=== PATIENT | male | born 1950 | race Caucasian/White ===

== ENCOUNTER 2019-05-13 14:41 | Inpatient (IN) | payer MEDICARE, OTHER, MEDICAID ==
[~2019-05-13] VITALS: Ht 172.7 cm; Wt 86.0 kg
[~2019-05-13 14:41] MED LIST: ACCUPRIL40 MG PO; ACETAMINOPHEN650 M5 PO; ALBUTEROL2.5 MG/3 M IH; ALDACTONE25 MG PO; ASPIR 8181 MG PO; CARDIZEM CD360 MG PO; CARVEDILOL6.25 MG PO; CITALOPRAM HBR40 MG PO; COUMADIN 2 MG TA2 M1 PO; DILTIAZEM 24HR240 M2 PO; DOXYCYCLINE 10100 MG PO; DUONEB 2.5-0.5 M3 ML INH; FLEXERIL PO; FLORASTOR250 MG PO; GLUCOPHAGE1000 MG PO; GLUCOPHAGE500 MG; HYDRALAZINE HC100 MG PO; HYDROCODON-ACE1 EAC7 PO; HYDROCODONE-AP1 EAC6 PO; HYDROCODONE-APA1 TA1 PO; LASIX 40 MG TAB40 M1 PO; LIPITOR; LIPITOR 40 MG T40 M1 PO; MOBIC15 MG PO; NEXIUM 40 MG CA40 M1; NEXIUM 40 MG CA40 M1 PO; NICOTINE TRANSD21 M1 TD; OMEPRAZOLE40 MG PO; OSELB75 PO; POTASSIUM20 PO; PRAVACHOL40 MG PO; PREDNISONE 10 M10 MG PO; PREDNISONE 20 M20 M1 PO; PRINIVIL40 MG PO; PROAIR HFA8.5 GM IH; PROTONIX40 M1 PO; SINGULAIR 10 MG10 M1 PO; TAZTIA XT360 M1 PO; TOPROL; TOPROL XL100 MG PO; ULTRACET TABLE1 EACH PO; VENTOLIN HFA 1818 GM INH; [UNRECOGNIZED DRUG - OTHER]
[2019-05-13 14:47] VITALS: BP 118/71
[2019-05-13] MEDS ORDERED: BUDESONIDE EC3 MG PO (14:55)
[2019-05-13] MEDS ORDERED: BLOOD THINNER (14:56)
[2019-05-13 15:14] LABS: HEMATOCRIT 33.5 % (42.0-52.0); HEMOGLOBIN 10.9 gm/dL (14.0-18.0); MCH 28.7 pg (26.0-34.0); MCHC 32.6 g/dL (28.0-37.0); MCV 88.1 fL (80.0-100.0); MPV 7.1 fl. (7.2-11.1); NUCLEATED RBCS 0 /100WBC; PLATELET COUNT* 532 thou/uL (150-400); RDW-CV 15.5 % (10.5-14.5); WBC 13.4 thou/uL (4.0-11.0)
[2019-05-13 15:18] LABS: CREATININE 1.8 mg/dL (0.6-1.3); POTASSIUM 4.9 mmol/L (3.5-5.1)
[2019-05-13 15:19] LABS: APTT 39.8 Seconds (25.0-31.3); INR 1.4; PROTIME 14.4 Seconds (9.20-11.50)
[2019-05-13 15:29] LABS: ALBUMIN 2.9 g/dL (3.4-5.0); TOTAL BILIRUBIN 0.3 mg/dL (<0.1-1.0); TOTAL PROTEIN 6.7 g/dL (6.4-8.2)
[2019-05-13 15:37] LABS: INFLUENZA A ANTIGEN Negative (Negative); INFLUENZA B ANTIGEN Negative (Negative)
[2019-05-13 16:06] LABS: ABSOLUTE LYMPHOCYTES 0.7 thou/uL (0.8-5.3); ABSOLUTE MONOCYTES 0.5 thou/uL (0.0-1.2); ABSOLUTE NEUTROPHILS 12.2 thou/uL (1.6-8.1)
[2019-05-13 16:07] LABS: ANISOCYTOSIS Occasional; PLATELET ESTIMATE INCREASED
[2019-05-13 17:42] VITALS: BP 115/70
[2019-05-13] MEDS ORDERED: ELIQUIS5 MG PO (17:50)
[2019-05-13 19:03] VITALS: BP 140/73
[2019-05-13 22:45] VITALS: BP 141/76
[2019-05-14 00:35] VITALS: BP 115/80
[2019-05-14 04:00] VITALS: BP 170/100
[2019-05-14 05:47] LABS: ABSOLUTE LYMPHOCYTES 0.6 thou/uL (0.8-5.3); ABSOLUTE NEUTROPHILS 7.4 thou/uL (1.6-8.1); BASOPHILS 0.2 %; HEMATOCRIT 32.6 % (42.0-52.0); HEMOGLOBIN 10.9 gm/dL (14.0-18.0); LYMPHOCYTES 7.6 %; MCH 29.7 pg (26.0-34.0); MCHC 33.3 g/dL (28.0-37.0); MCV 89.2 fL (80.0-100.0); MONOCYTES 0.5 %; NUCLEATED RBCS 0 /100WBC; POLYS 91.7 %; RBC 3.65 mil/uL (4.50-6.00); RDW-CV 15.3 % (10.5-14.5); WBC 8.1 thou/uL (4.0-11.0)
[2019-05-14 05:49] LABS: PLATELET COUNT* 431 thou/uL (150-400)
--- NOTE | 2019-05-14 06:07 | NUR ---
PT A&O, ON 3L O2 BY NC. NO C/O PAIN. PT USED URINAL TO VOID. PT TRANSFERED TO NEGATIVE PRESSURE ROOM, BREATHING TREATMENT GIVEN. HEART MONITOR IN PLACE. WILL CONTINUE TO MONITOR.
[2019-05-14 06:28] LABS: ANION GAP 12 mmol/L (7-16); BUN 31 mg/dL (7-18); CALCIUM 8.1 mg/dL (8.5-10.1); CHLORIDE 101 mmol/L (98-107); CO2 27 mmol/L (21-32); CREATININE 1.6 mg/dL (0.6-1.3); GLUCOSE 162 mg/dL (70-99); MAGNESIUM 1.1 mg/dL (1.8-2.4); NT-PRO BRAIN NAT PEPTIDE 6373 pg/mL (<300); POTASSIUM 5.5 mmol/L (3.5-5.1); SODIUM 140 mmol/L (136-145); TROPONIN-I LEVEL <0.06 ng/mL (<0.06)
[2019-05-14 07:50] VITALS: BP 158/86
--- NOTE | 2019-05-14 11:06 | EKG ---
[place] [address] ELECTROCARDIOGRAM REPORT Name: ZOË BARTON Room: [place] [address] ADM IN [facility].#: [id number] Admission: 05/13/19 Attend Phys: Jamel Gunter, Discharge: Date of : 46 Date of Service: 05/13/19 1500 Report #: [id number] THIS REPORT FOR: //name// [facility] ED Test Date: 2019-05-13 Test Time: 15:00:14 Pat Name: ZOË BARTON Department: Room: [facility] Gender: M Ctc Operator: TK : 1950 Requested By: Franklin Sandoval Order Number: [id number] MD: Dillan Burgos Measurements Intervals [place] Rate: 72 P: KS: QRS: -32 QRSD: 78 T: 35 QT: 404 QTc: 443 Interpretive Statements Afib/flut and V-paced complexes poor r wave progression No further rhythm analysis attempted due to paced rhythm Low voltage, extremity and precordial leads Compared to ECG 03/07/2016 09:46:51 paced beats noted Electronically Signed On 05-14-2019 11:05:03 CDT by Dillan Burgos [email or web address] <ELECTRONICALLY SIGNED> By: Dillan Burgos MD, FACC 05/14/19 1105 1500 1500 Dillan Burgos MD, FACC /EPI
[2019-05-14 11:21] VITALS: BP 114/62
--- NOTE | 2019-05-14 11:44 | CON ---
[address] [address] CONSULTATION Name: ZOË BARTON Room: [place] [address] ADM IN [facility].#: [id number] Admission: 05/13/19 Attend Phys: Jamel Gunter MD Discharge: Date of : 46 Report #: [id number] THIS REPORT FOR: //name// cc: JEOVANNY Coles family physician/PCP JEOVANNY Coles family physician/PCP ~ THIS REPORT FOR: //name// CC: Jamel Gunter [facility] physician/PCP Hayden Enciso DO DATE OF SERVICE: 05/14/2019 CARDIOLOGY CONSULTATION HISTORY OF PRESENT ILLNESS: The patient is a 68-year-old single white male who I was asked to see in the hospital today after he complained of being short of breath. The patient presented in 2005 with a syncopal spell. He was taken to [facility]. He apparently had a heart catheterization and was found to have minimal coronary artery disease. He was admitted to [facility] in 2012 with atrial fibrillation. Recommended anticoagulation with warfarin. Echocardiogram showed normal left ventricular function. He was placed on diltiazem. Previous stress test showed no significant CAD. Previous screening showed mild carotid stenosis. The patient had a syncopal spell. On event recorder, he had episodes of rapid atrial fibrillation as well as slow rates of atrial fibrillation consistent with tachybrady syndrome. He had a 6-second pause. I recommended a permanent pacemaker. This was performed at [facility] in 02/2016. I saw the patient in the office a week later. The patient was paced approximately 30% of the time. He has not been seen for the past 3 years. He apparently lives in [place]. The patient is not very active at this time. He apparently has not been taking medications at this time. He came to the Emergency Room yesterday complaining that his feet were swollen. He was short of breath. He has had a cough. Denied any chest pain, palpitations, syncope, or bleeding. PAST MEDICAL HISTORY: Otherwise significant for previous shoulder surgery. He has had previous toe amputation following an accident, but it was reattached. He has a history of tonsillectomy, carpal tunnel surgery, hypertension, diabetes, and hyperlipidemia. MEDICATIONS: His previous medications included metformin, quinapril, Pravachol, Celexa, omeprazole, and warfarin. He is not taking any medications at this time. ALLERGIES: HE HAS PREVIOUS INTOLERANCE TO SULFA DRUGS. FAMILY HISTORY: He has a [place] [address] CONSULTATION Name: ZOË BARTON Room: [address] IN [facility]#: [id number] Admission: 05/13/19 Attend Phys: Jamel Gunter MD Discharge: Date of : 46 Report #: [id number] SOCIAL HISTORY: He is single, currently lives in [place], [place]. He smokes half pack of cigarettes a day. No alcohol abuse. REVIEW OF SYSTEMS: No history of stroke, peptic ulcer disease, liver disease, kidney disease. He has chronic back pain. No chronic skin condition. No psychiatric illness. PHYSICAL EXAMINATION: GENERAL: Revealed an elderly male, lying in bed, appeared in mild respiratory distress. VITAL SIGNS: He had a blood pressure of 120/70, pulse is 80 and irregular. He was afebrile. HEENT: He is anicteric. Conjunctivae pink. Mucous membranes are moist. NECK: Neck veins do not appear distended. CHEST: Revealed decreased breath sounds, late expiratory phase is noted. CARDIOVASCULAR: Irregular rhythm. No significant murmur. ABDOMEN: Soft. EXTREMITIES: Had pitting edema up to mid tibial area. SKIN: Warm and dry. NEUROLOGIC: Nonfocal. RADIOLOGICAL DATA: His ECG shows atrial fibrillation with occasional paced beats. His workup, his last echocardiogram in 2016 showed ejection fraction of 40%, biatrial enlargement, moderate mitral regurgitation. His x-rays yesterday, he had a portable chest x-ray that showed mild infiltrate, normal heart size, no effusions. LABORATORY DATA: Sodium 140, potassium 5.5, BUN 31, and creatinine 1.6. He had a creatinine of 2.0 in 2017. Glucose 166. His liver function studies were normal. Troponin is 0.06. BNP is 6373. His white blood cell count 8.1 and hemoglobin 10.9, it was 10.1 in 2016. IMPRESSION AND RECOMMENDATIONS: 1. Pneumonia. 2. Atrial fibrillation. Recommend anticoagulation with warfarin. 3. Sick sinus syndrome. The patient has a pacemaker in place. 4. Hypertension. The patient quit taking all his medications. 5. Diabetes. 6. Tobacco abuse. <ELECTRONICALLY SIGNED> By: Dillan Burgos MD, [facility] 05/14/19 1144 0921 [id number] Burgos MD, FAC /nt
--- NOTE | 2019-05-14 12:43 | 2DMMODE ---
[place] [address] 2 D/M-MODE ECHOCARDIOGRAM Name: ZOË BARTON Room: [place] [address] ADM IN [place].#: [id number] Admission: 05/13/19 Attend Phys: Jamel Gunter, Discharge: Date of : 46 Date of Service: 05/14/19 1242 Report #: [id number] THIS REPORT FOR: cc: FAM - No family physician/PCP FAM - No family physician/PCP Dillan Burgos MD [facility] ~ APPROVED REPORT Study performed: 05/14/2019 09:49:01 EXAM: Comprehensive 2D, Doppler, and color-flow Echocardiogram Patient Location: In-Patient Room #: [facility] Status: routine BSA: 1.96 HR: 89 bpm BP: 158/86 mmHg Rhythm: Atrial Fibrillation Other Information Study Quality: Good Indications Atrial Fibrillation Respiratory failure 2D Dimensions IVSd: 10.59 (7-11mm) LVOT Diam: 20.77 (18-24mm) LVDd: 48.75 mm PWd: 8.65 (7-11mm) Ascending Ao: 31.73 (22-36mm) LVDs: 36.97 (25-40mm) Aortic Root: 30.74 mm Volumes Left Atrial Volume (Systole) LA ESV Index: 45.70 mL/m2 Aortic Valve AoV Peak Humberto.: 1.40 m/s AO Peak Gr.: 7.81 mmHg LVOT Max P.24 mmHg AO Mean Gr.: 4.63 mmHg LVOT Mean P.39 mmHg LVOT Max V: 0.90 m/s AO V2 VTI: 24.90 cm LVOT Mean V: 0.53 m/s LENCHO (VTI): 2.34 cm2 LVOT V1 VTI: 17.[address] [place] [address] 2 D/M-MODE ECHOCARDIOGRAM Name: ZOË BARTON Room: [address] IN [facility]#: [id number] Admission: 05/13/19 Attend Phys: Jamel Gunter, Discharge: Date of : 46 Date of Service: 05/14/19 1242 Report #: [id number] Pulmonary Valve PV Peak Humberto.: 0.95 m/s PV Peak Gr.: 3.57 mmHg Tricuspid Valve RAP Estimate: 10.00 mmHg TR Peak Gr.: 35.06 mmHg RVSP: 45.00 mmHg PA Pressure: 45.00 mmHg Left Ventricle The left ventricle is normal size. There is normal LV segmental wall motion. There is normal left ventricular wall thickness. Left ventricular systolic function is normal. The left ventricular ejection fraction is within the normal range. LVEF is 55-60%. This study is not technically sufficient to allow evaluation of the LV diastolic function due to atrial fibrillation. Right Ventricle The right ventricle is normal size. The right ventricular systolic function is normal. Pacemaker lead is present in the right ventricle. Atria Left atrium is moderately dilated. Right atrium is mildly dilated. Aortic Valve Mild aortic valve sclerosis. No aortic regurgitation is present. There is no aortic valvular stenosis. Mitral Valve The mitral valve is normal in structure. Mild mitral regurgitation. No evidence of mitral valve stenosis. Tricuspid Valve The tricuspid valve is normal in structure. Mild tricuspid regurgitation. estimated pa pressure 45 mm Hg Pulmonic Valve Pulmonic valve is not well visualized. There is no pulmonic valvular regurgitation. Great Vessels The aortic root is normal in size. IVC is dilated. Pericardium There [place] [address] 2 D/M-MODE ECHOCARDIOGRAM Name: ZOË BARTON Room: [address] IN .R.#: [id number] Admission: 05/13/19 Attend Phys: Jamel Gunter, Discharge: Date of : 46 Date of Service: 05/14/19 1242 Report #: [id number] <Conclusion> LVEF is 55-60%. Left atrium is moderately dilated. Mild aortic valve sclerosis. Mild mitral regurgitation. Mild tricuspid regurgitation. estimated pa pressure 45 mm Hg <ELECTRONICALLY SIGNED> By: Dillan Burgos MD, [facility] 05/14/19 1242 124 41 Dillan Burgos MD, [facility] /INF
[2019-05-14 17:35] VITALS: BP 119/60
--- NOTE | 2019-05-14 18:07 | NUR ---
PT A&OX4 VSS. PVCs NOTED ON MONITOR. COVID RESULTS PENDING. PT ON 3L O2 BY NASAL CANNULA. EDEMA NOTED TO BLE, PRESENT PRIOR TO THIS NURSE'S SHIFT. IV LASIX ADMINISTERED ORDERED. IV TO R HAND DC'D BY PT. NEW ACCESS PLACED TO RFA BY SILVIA CONTRERAS. PT IS ACCUCHECK. PT UP TO RECLINER DESIRED FOR MEALS. PT TO RESTROOM UNASSISTED. PT REMAINS AFEBRILE. PT INSTRUCTED TO USE CALL LIGHT NEEDED. CELL PHONE AND OPS ANALYST PLACED IN REACH WELL URINAL. PT SITTING IN RECLINER AT THIS TIME. WILL CONTINUE TO MONITOR.
[2019-05-14 20:33] VITALS: BP 142/96
[2019-05-15] VITALS: BP 134/80
[2019-05-15 05:00] VITALS: BP 155/95
[2019-05-15 05:22] LABS: ABSOLUTE LYMPHOCYTES 0.6 thou/uL (0.8-5.3); ABSOLUTE MONOCYTES 0.2 thou/uL (0.0-1.2); ABSOLUTE NEUTROPHILS 13.9 thou/uL (1.6-8.1); BASOPHILS 0.1 %; HEMATOCRIT 32.8 % (42.0-52.0); HEMOGLOBIN 10.8 gm/dL (14.0-18.0); MCH 28.6 pg (26.0-34.0); MCHC 32.9 g/dL (28.0-37.0); MONOCYTES 1.4 %; NUCLEATED RBCS 0 /100WBC; PLATELET COUNT* 491 thou/uL (150-400); POLYS 94.5 %; RBC 3.77 mil/uL (4.50-6.00); RDW-CV 15.2 % (10.5-14.5); WBC 14.7 thou/uL (4.0-11.0)
[2019-05-15 05:42] LABS: ALBUMIN 2.9 g/dL (3.4-5.0); CALCIUM 8.8 mg/dL (8.5-10.1); CREATININE 1.7 mg/dL (0.6-1.3); POTASSIUM 4.7 mmol/L (3.5-5.1); TOTAL BILIRUBIN 0.3 mg/dL (<0.1-1.0); TOTAL PROTEIN 6.5 g/dL (6.4-8.2)
--- NOTE | 2019-05-15 06:34 | NUR ---
ASSUMED PT CARE AT 1930. NURSING ASSESSMENT COMPLETED AT START OF SHIFT. PT VOICED NO CONCERNS. AFIB/V PACED ON FURNACE MAINTENANCE. HOURLY ROUNDING COMPLETED. CALL LIGHT WITHIN REACH.
[2019-05-15 09:00] VITALS: BP 148/85
--- NOTE | 2019-05-15 16:40 | NUR ---
PATIENT ALERT AND ORIENTED X 4. VITAL SIGNS STABLE ON 4L O2 NASAL CANULA. AFEBRILE. IV PATENT AND SALINE LOCKED. MEDS GIVEN PER APR. DENIES PAIN AND NAUSEA AT THIS TIME. PVC'S NOTED ON MONITOR. COVID-19 RESULTS PENDING. ENHANCED PRECAUTIONS MAINTAINED. HOURLY ROUNDS MAINTAINED THROUGHOUT THE SHIFT. CALL LIGHT WITHIN REACH. NURSING WILL CONTINUE TO MONITOR.
--- NOTE | 2019-05-15 16:57 | NUR ---
Pt is A&O. Resides at home with his S/O, Cris. Normally independent. Pt uses a walker or cane for mobility. Pt wears 4L of o2 through [employer]. Hx of [facility]. No hx of SNF. Goal is home at [place]. Covid pending.
[2019-05-15 17:42] VITALS: BP 143/91
[2019-05-15 19:35] VITALS: BP 164/99
[2019-05-15 21:40] LABS: BE 4.7 mmol/L (-2 to +3); PCO2 37.4 mmHg (35.0-45.0); PO2 91.6 mmHg (75.0-100.0); pH 7.494 (7.340-7.450)
[2019-05-16] VITALS (18 sets, daily range): BP systolic 50–213; BP diastolic 13–183
--- NOTE | 2019-05-16 03:35 | NUR ---
ASSUMED CARE OF PT AT 1900. PT IS ALERT X'S 3. NO COMPLAINTS OF PAIN. UP WITH STAND BY ASSIST. PT WORK OF BREATHING HAS INCREASED T/O THE NIGHT. PT WAS GIVEN 80MG OF LASIX FOR FLUID OVERLOAD. PT PLACED ON STRICT I AN O. ALSO 1.5 FLUID RESTRICTION. PT IS IN A FIB ON THE TELEMETRY. PT WAS PLACED ON CARDIZEM AT THE BEGINNING OF THE SHIFT FOR HEART RATE IN THE 160'S. PT IS NONCOMPLIANT WITH ANY IV FLUIDS. PT PULLED HIS IV OUT WHEN IT WAS HOOKED UP. PT IS A VERY DIFFICULT STICK. PT REPORTS BEING AN IV DRUG USER.
[2019-05-16 10:18] LABS: ABSOLUTE LYMPHOCYTES 0.4 thou/uL (0.8-5.3); ABSOLUTE MONOCYTES 1.2 thou/uL (0.0-1.2); ABSOLUTE NEUTROPHILS 20.4 thou/uL (1.6-8.1); BASOPHILS 0.1 %; HEMOGLOBIN 11.4 gm/dL (14.0-18.0); LYMPHOCYTES 1.7 %; MCH 28.2 pg (26.0-34.0); MCHC 31.6 g/dL (28.0-37.0); MCV 89.3 fL (80.0-100.0); MONOCYTES 5.5 %; MPV 7.4 fl. (7.2-11.1); NUCLEATED RBCS 0 /100WBC; PLATELET COUNT* 549 thou/uL (150-400); POLYS 92.7 %; RBC 4.03 mil/uL (4.50-6.00); RDW-CV 15.8 % (10.5-14.5)
[2019-05-16 10:39] LABS: ALBUMIN 3.2 g/dL (3.4-5.0); CALCIUM 8.7 mg/dL (8.5-10.1); CREATININE 2.6 mg/dL (0.6-1.3); POTASSIUM 5.2 mmol/L (3.5-5.1); TOTAL BILIRUBIN 0.6 mg/dL (<0.1-1.0); TOTAL PROTEIN 6.8 g/dL (6.4-8.2)
[2019-05-16 11:56] LABS: BE 6.5 mmol/L (-2 to +3); pH 7.302 (7.340-7.450)
[2019-05-16 11:57] LABS: PCO2 72.3 mmHg (35.0-45.0)
[2019-05-16 11:58] LABS: PO2 218.9 mmHg (75.0-100.0)
[2019-05-16 15:36] LABS: ABSOLUTE BASOPHILS 0.1 thou/uL (0.0-0.2); ABSOLUTE LYMPHOCYTES 0.3 thou/uL (0.8-5.3); ABSOLUTE MONOCYTES 1.1 thou/uL (0.0-1.2); ABSOLUTE NEUTROPHILS 14.4 thou/uL (1.6-8.1); BASOPHILS 0.6 %; HEMATOCRIT 28.8 % (42.0-52.0); LYMPHOCYTES 1.7 %; MCH 28.9 pg (26.0-34.0); MCHC 32.5 g/dL (28.0-37.0); MCV 88.9 fL (80.0-100.0); MONOCYTES 6.7 %; MPV 7.3 fl. (7.2-11.1); NUCLEATED RBCS 0 /100WBC; RBC 3.23 mil/uL (4.50-6.00); RDW-CV 15.5 % (10.5-14.5); WBC 15.9 thou/uL (4.0-11.0)
[2019-05-16 15:45] LABS: CALCIUM 7.6 mg/dL (8.5-10.1); CREATININE 2.5 mg/dL (0.6-1.3)
[2019-05-16 16:13] LABS: MAGNESIUM 1.5 mg/dL (1.8-2.4); PHOSPHORUS* 5.4 mg/dL (2.5-4.9)
[2019-05-16 16:45] LABS: HEMOGLOBIN 9.3 gm/dL (14.0-18.0); PLATELET COUNT* 334 thou/uL (150-400)
--- NOTE | 2019-05-16 16:45 | NUR ---
I ASSUMED CARE OF THE PATIENT AT 0700. HE IS ALERT AND ORIENTED X3 AND IS UP WITH STAND BY ASSIST. HOURLY ROUNDING IS COMPLETE AND PATIENT NEEDS ARE MET. PAIN IS DENIED. BED IS IN THE LOW LOCKED POSITION AND CALL LIGHT IS IN REACH. HE IS STRUGGLING TO BREATHE. RESPIRATIONS ARE LABORED IN THE 45-50 RANGE. A RAPID WAS CALLED AND NEW ORDERS WERE OBTAINED. PATIENT WAS MOVED TO THE ICU WITH PLANS OF POSSIBLE INTUBATION. FAMILY IS CONTACTED OF THE TRANSFER AND REPORT IS GIVEN TO RUSSELL IN THE ICU.
[2019-05-16 16:46] LABS: POTASSIUM 4.1 mmol/L (3.5-5.1)
[2019-05-16 16:46] LABS: BE 8.5 mmol/L (-2 to +3); pH 7.442 (7.340-7.450)
[2019-05-16 16:48] LABS: PCO2 50.5 mmHg (35.0-45.0); PO2 190.3 mmHg (75.0-100.0)
--- NOTE | 2019-05-16 19:49 | NUR ---
pt came down from [place] do to resp failure sob intubated sedated coded preformed cpr no iv access during code IO inserted into l knee until central line placed IO removed after code cardio consult do to elevated hr and afib family notified central trip lumen placed by dr bree powers pt girlfriend paperwork in chart
[2019-05-17] VITALS (86 sets, daily range): BP systolic 44–153; BP diastolic 15–94
--- NOTE | 2019-05-17 02:37 | NUR ---
ASSUMED CARE AT 1900H, ON VENT AT 50% AC MODE AND TOLERATED. ON PRECEDEX DRIP MAX DOSE AND VERSED AT 5MG/HR WITH EPISODE OF TACHYPNIA. ON DOPAMINE 7MIC/KG/MIN AND TITRATED. PT BP WAS FLACTUATING. PT WAS HYPERTENSIVE AFTER TURNING HIM TO SIDE THEN BECAME HYPOTENSIVE. DOPAMINE INCREASE GRADUALLY THEN PT HAD NO PULSE AND NO HEART BEAT UPON AUSCULTATION. CODE BLUE ON, CPR INITIATED AND GIVEN 2 EPINEPHRINE IV. PT REGAIN PULSE AND WITH PB. STARTED EPINEPHRINE DRIP AND LEVOPHEP DRIP. VERSED DRIP AND PRECEDEX DRIP HOLD BUT PT BECAME TACHYPNIC AFTER AND HOUR, SEDATION STARTED AGAIN. HEMODYNAMIC STABLE FOR NOW. KEEP ON MONITORING.
[2019-05-17 05:59] LABS: HEMATOCRIT 30.6 % (42.0-52.0); MCHC 32.8 g/dL (28.0-37.0); MCV 88.4 fL (80.0-100.0); RBC 3.46 mil/uL (4.50-6.00); WBC 17.6 thou/uL (4.0-11.0)
[2019-05-17 06:03] LABS: CALCIUM 7.4 mg/dL (8.5-10.1); CREATININE 2.7 mg/dL (0.6-1.3); MAGNESIUM 1.6 mg/dL (1.8-2.4); POTASSIUM 4.7 mmol/L (3.5-5.1)
--- NOTE | 2019-05-17 10:21 | NUR ---
3553 ASSUMED CARE OF PATIENT. PLEASE SEE DOCUMENTED ASSESSMENT. PT IS UNRESPONSIVE TO PAIN BUT HAS INTACT GAG. DR HERRERA HERE AND DISCUSSED STATUS OF PATIENT. HE WILL CALL SIGNIFICANT OTHER WHO IS DPOA.
--- NOTE | 2019-05-17 17:07 | NUR ---
MINIMAL PROGRESSION TOWARDS GOALS TODAY. PT HAS BEEN UNRESPONSIVE WITH MTN NOTIFIED. SEDATION AND PRESSORS TITRATED DOWN WITH EPI DRIP NOW OFF. FEBRILE WITH TYLENOL GIVEN WELL COOLING BATH. MULTIPLE CONVERSATIONS TODAY WITH BOTH THE SIGNIFICANT OTHER WHO IS DPOA FOR PATIENT AND THE SON WHO IS THE ALTERNATE DPOA. HOSPITALIST HAS CONVERSED WITH BOTH OF THEM. PATIENT REMAINS OUT OF RESTRAINTS.
[2019-05-18] VITALS: BP 93/52
[2019-05-18 00:25] VITALS: BP 80/56
[2019-05-18 00:35] VITALS: BP 77/49
[2019-05-18 00:40] VITALS: BP 70/39
[2019-05-18 00:56] VITALS: BP 41/22
--- NOTE | 2019-05-18 04:23 | NUR ---
ASSUMED CARE AT 1900H, ON VENT AC MODE AT 50% AND STILL ON PRECEDEX AND VERSED DRIP. WITH DOPAMINE AND LEVO DRIP AND TITRATED ACCORDING TO BP. TALKED TO PT'S DPOA AND SHE WANTED PT TO DNR, EXPLAIN TO HER WHAT DNR MEANS. SECOND NURSE CONFIRM HER DECISSION AND HOSPITALIST INFORMED WITH ORDER CARRIED OUT. ARROUND 2300, PT'S BP GRADULLY DECREASING AND PRESSORS TITRATED. PRESSORS MAX, WE ARE ABOUT TO START NEW PRESSORS BUT PT BP SUDDENLY DROPPED AND WE COULDN'T GET PULSE AND HEART BEAT. SEEN BY ER DOCTOR EVI, TIME OF EXPIRATION WAS 0100H. INFORM PRIMARY DPOA(QASIM), SON WAS AWARE AND UPSET ABOUT THE DECISSION OF QASIM REGARDING THE DNR. DOCTORS INFORMED. MTN AWARE AND ACCORDING TO THEM, PT WAS NOT A CANDIDATE FOR DONATION. WATER PLANT PUMP OPERATOR ALSO CALLED AND CASE ACCEPTED. HOUSE SUP ALSO INFORMED UPON . [place]TE[place]O CATH REMOVED, PUT PT IN A BODY BAG. FAMILY CAME INCLUDING SONS ABLE SAY GOODBYES AND ALL BELONGING RELEASE TO ZOË GRISSOM WATER PLANT PUMP OPERATOR'S STAFF CAME AND TOOK THE CADAVER AT 0340H.
--- NOTE | 2019-05-18 10:15 | EKG ---
[place] [address] ELECTROCARDIOGRAM REPORT Name: ZOË BARTON Room: [address] IN [facility]#: [id number] Admission: 05/13/19 Attend Phys: Jamel Gunter, Discharge: 05/18/19 Date of : 46 Date of Service: 05/16/19 0826 Report #: [id number] THIS REPORT FOR: //name// [facility] Test Date: 2019-05-16 Test Time: 08:26:24 Pat Name: ZOË BARTON Department: Room: [facility] Gender: M Raw Juice Weigher: VAHE : 1950 Requested By: Jamel Gunter Order Number: [id number] Reading MD: Dillan Burgos Measurements Intervals [place] Rate: 107 P: DE: QRS: -25 QRSD: 64 T: QT: 395 QTc: 527 Interpretive Statements Atrial fibrillation low voltage Ventricular premature complex Anterior infarct, age indeterminate Lateral leads are also involved Prolonged QT interval Compared to ECG 05/13/2019 15:00:14 Ventricular premature complex(es) now present Prolonged QT interval now present Ventricular-paced complex(es) or rhythm no longer present Electronically Signed On 05-18-2019 10:13:55 CDT by Dillan Burgos [email or web address] <ELECTRONICALLY SIGNED> By: Dillan Burgos MD, [facility] 05/18/19 1013 5 5 Dillan Burgos MD, [facility] /EPI
--- NOTE | 2019-05-18 10:18 | EKG ---
[place] [address] ELECTROCARDIOGRAM REPORT Name: ZOË BARTON Room: [address] IN [facility]#: [id number] Admission: 05/13/19 Attend Phys: Jamel Gunter, Discharge: 05/18/19 Date of : 46 Date of Service: 05/16/19 1450 Report #: [id number] THIS REPORT FOR: //name// [facility] Test Date: 2019-05-16 Test Time: 14:50:21 Pat Name: ZOË BARTON Department: Room: [address] Gender: M Beamer Helper: LAURA : 1950 Requested By: Jamel Gunter Order Number: [id number] MD: Dillan Burgos Measurements Intervals [place] Rate: 109 P: 0 WV: 157 QRS: -33 QRSD: 72 T: QT: 349 QTc: 471 Interpretive Statements atrial fibrillation poor r wave progression Probable anterior infarct, age indeterminate low voltage Electronically Signed On 05-18-2019 10:17:05 CDT by Dillan Burgos [email or web address] <ELECTRONICALLY SIGNED> By: Dillan Burgos MD, [facility] 05/18/19 1017 1450 1450 Dillan Burgos MD, [facility] /EPI
--- NOTE | 2019-05-18 10:20 | CON ---
[address] [address] CONSULTATION Name: ZOË BARTON Room: [address] IN .R.#: [id number] Admission: 05/13/19 Attend Phys: Jamel Gunter MD Discharge: 05/18/19 Date of : 46 Report #: [id number] THIS REPORT FOR: //name// cc: JEOVANNY Coles family physician/PCP JEOVANNY Coles family physician/PCP ~ THIS REPORT FOR: //name// CC: Jamel Gunter FAM physician/PCP DATE OF SERVICE: 05/16/2019 HISTORY OF PRESENT ILLNESS: The patient previously seen by our group and reassessed on 05/16/2019 after acute respiratory arrest. The patient was noted to be markedly dyspneic and demonstrated respiratory failure with blood gasses reflecting a pH of 7.3 with a pCO2 of 72, pO2 of 218, bicarbonate of 35. The patient denies chest pain. An EKG obtained revealed atrial fibrillation with a tachycardic response with no evidence of acute injury. There was appropriate function of demand ventricular pacemaker. He has been transferred to the ICU, gives no meaningful history at this time. PHYSICAL EXAMINATION: VITAL SIGNS: Heart rate is 110 and irregularly irregular. CHEST: Respirations are controlled. Rare basilar crackles on the left. CARDIAC: Reveals an irregularly irregular rhythm at a mildly tachycardic rate. LABORATORY DATA: Remarkable for the aforementioned ABGs. EKG is as described above. There is evidence for renal insufficiency with a BUN of 42 and creatinine of 2.6. Glucose is 274 mg percent. IMPRESSION: 1. Acute on chronic respiratory failure. 2. No evidence for congestive heart failure on chest radiograph and the echocardiogram of 05/14/2019 revealed an ejection fraction of 55-60%. 3. Atrial fibrillation with a mildly tachycardic ventricular response with appropriate function of a VVI pacing system functioning in escape mode. 4. [place] [address] CONSULTATION Name: ZOË BARTON Room: [address]#: [id number] Admission: 05/13/19 Attend Phys: Jamel Gunter MD Discharge: 05/18/19 Date of : 46 Report #: [id number] Thank you for allowing us to continue to follow the patient. <ELECTRONICALLY SIGNED> By: Noel Pierce MD, FACC 05/18/19 1020 1559 [id number] Pierce MD, FACC /nt
== END 2019-05-18 01:00 | DRG 871 ==
LOC: M.ERS 14:41 → M.2W 16:47 → M.TBA-ER 16:47 → M.2W 18:59 → M.ICU 05-16 09:40
PROVIDERS: Family Medicine; Internal Medicine; Internal Medicine Cardiovascular Disease; Internal Medicine Pulmonary Disease; ADMIT Internal Medicine
PROC: 0BH17EZ Insertion of Endotracheal Airway into Trachea, Via Natural or Artificial Opening (ICD-10-PCS; principal; 2019-05-16)
PROC: 5A12012 Performance of Cardiac Output, Single, Manual (ICD-10-PCS; principal; 2019-05-16)
PROC: 5A1945Z Respiratory Ventilation, 24-96 Consecutive Hours (ICD-10-PCS; principal; 2019-05-16)
PROC: 02HV33Z Insertion of Infusion Device into Superior Vena Cava, Percutaneous Approach (ICD-10-PCS; principal; 2019-05-16)
DX: A41.9 Sepsis, unspecified organism (principal); J96.20 Acute and chronic respiratory failure, unspecified whether with hypoxia or hypercapnia; J15.6 Pneumonia due to other Gram-negative bacteria; J44.1 Chronic obstructive pulmonary disease with (acute) exacerbation; J44.0 Chronic obstructive pulmonary disease with (acute) lower respiratory infection; I13.0 Hypertensive heart and chronic kidney disease with heart failure and stage 1 through stage 4 chronic kidney disease, or unspecified chronic kidney disease; E44.0 Moderate protein-calorie malnutrition; N17.9 Acute kidney failure, unspecified; I48.20 Chronic atrial fibrillation, unspecified; F17.210 Nicotine dependence, cigarettes, uncomplicated; E78.5 Hyperlipidemia, unspecified; I49.5 Sick sinus syndrome; N18.9 Chronic kidney disease, unspecified; E11.22 Type 2 diabetes mellitus with diabetic chronic kidney disease; F32.9 Major depressive disorder, single episode, unspecified; I46.9 Cardiac arrest, cause unspecified; Z66 Do not resuscitate; G89.29 Other chronic pain; M54.9 Dorsalgia, unspecified; I25.10 Atherosclerotic heart disease of native coronary artery without angina pectoris; I50.9 Heart failure, unspecified; Z79.899 Other long term (current) drug therapy; I25.2 Old myocardial infarction; Z86.010 Personal history of colon polyps; Z79.84 Long term (current) use of oral hypoglycemic drugs; Z79.51 Long term (current) use of inhaled steroids; Z88.2 Allergy status to sulfonamides; Z68.28 Body mass index [BMI] 28.0-28.9, adult; Z95.0 Presence of cardiac pacemaker